=== PATIENT | male | born 1975 | race Caucasian/White ===

== ENCOUNTER 2017-01-06 23:13 | Emergency (ER) | payer BC ==
[~2017-01-06] VITALS: Ht 180.3 cm; Wt 108.9 kg
[~2017-01-06 23:13] MED LIST: ANAPROX DS550 MG PO; AUGMENTIN 875 M1 TAB PO; AUGMENTIN 875875 MG PO; BIAXIN500 MG PO; CLARITIN10 MG PO; CLEOCIN150 MG PO; COMBIVENT1 ARO IH; EES200 MG/5 M PO; FLONASE 0.05% 121 EA NAS; IBU800 MG PO; MEDROL DOSEPAK4 MG PO; MOTRIN800 MG PO; NORCO 5-325 TA1 EACH PO; NORFLEX100 MG PO; PREDNISONE20 M1 PO; PREDNISONE20 MG PO; PROVENTIL0.09 MG/AC IH; ZITHROMAX Z PA250 MG PO; ZYRTEC10 MG PO
[2017-01-06] MEDS ORDERED: AMOXICILLIN500 M2 PO (23:26)
== END 2017-01-06 23:49 | disposition home or self-care (01) ==
LOC: ED 23:13
DX: J02.9 Acute pharyngitis, unspecified (principal); Z87.891 Personal history of nicotine dependence

== ENCOUNTER → 2020-06-23 | Outpatient (CLI) | payer BC ==
[~2020-06-23] MED LIST changes: +AMOXICILLIN500 M2 PO
== END | disposition home or self-care (01) ==
LOC: COVID19 15:46
PROVIDERS: ATTEND Family Medicine
DX: Z20.828 Contact with and (suspected) exposure to other viral communicable diseases (principal)

== ENCOUNTER → 2021-05-10 | Outpatient (CLI) | payer BC | END | disposition home or self-care (01) | LOC: COVID19 17:16 | PROVIDERS: ATTEND Internal Medicine | DX: Z11.52 Encounter for screening for COVID-19 (principal) ==